=== PATIENT | female | born 1985 | race American Indian/Alaskan Native ===

== ENCOUNTER 2016-09-17 14:29 | Outpatient (CLI) | payer MEDICAID ==
--- NOTE | 2016-09-18 09:59 | Ultrasound Report ---
ULTRASOUND PELVIC COMPLETE: ULTRASOUND TRANSVAGINAL: HISTORY: Pelvic pain. TECHNIQUE: Transabdominal and transvaginal ultrasound imaging with color Doppler interrogation. COMPARISON: None. FINDINGS: The uterus is borderline to mildly enlarged measuring 10.0 x 5.0 x 6.8 cm. The uterine echotexture is slightly heterogeneous. Small fibroids could be present. There is no large submucosal or exophytic fibroid. The endometrial stripe measures 10 mm. No discrete abnormality. The right ovary measures 4.9 x 2.3 x 3.5 cm. The left ovary measures 3.1 x 2.8 x 1.9 cm. Normal follicles are identified bilaterally. No pelvic fluid collection. 1 cm nabothian cyst is noted in the anterior cervix. IMPRESSION: Mild enlargement of the uterus which could represent an early presentation of fibroid disease. No discrete fibroids are demonstrated. Normal endometrium and ovaries. 1 cm nabothian cyst.
== END 2016-09-17 14:30 | disposition home or self-care (01) ==
LOC: US 14:29
PROVIDERS: ATTEND Family Medicine
DX: N88.8 Other specified noninflammatory disorders of cervix uteri (principal)
CPT/HCPCS: 76830; 76856